=== PATIENT | female | born 2000 | race Hispanic/Latino ===

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

== ENCOUNTER 2022-02-07 19:36 | Emergency (ER) | payer OTHER | END 2022-02-07 20:30 | disposition home or self-care (01) | LOC: CSHERS 19:36 | DX: A60.1 Herpesviral infection of perianal skin and rectum (principal) | CPT/HCPCS: 99283 ==